=== PATIENT | male | born 1940 | race Caucasian/White ===

== ENCOUNTER 2020-06-01 16:44 | Inpatient (IN) | payer OTHER ==
[~2020-06-01] VITALS: Ht 152.4 cm; Wt 106.3 kg
[2020-06-01] MEDS ORDERED: AZITHROMYCIN 500MG/ 250ML 250 ML IV ONE (18:00)
[2020-06-01 18:52] LABS: Basophils # (auto) 0 10 ^3/uL (0-0.2); Basophils % (auto) 0.4 % (0.0-2.0); Eosinophils # (auto) 0.3 10 ^3/uL (0-0.8); Eosinophils % (auto) 3.7 % (0.0-7.0); Hematocrit 43.6 % (41.0-53.0); Hemoglobin 14.3 g/dL (13.5-17.5); Lymphocytes # (auto) 1.2 10 ^3/uL (0.4-5.4); Lymphocytes % (auto) 14.3 % (10.0-50.0); Mean Corpuscular Hemoglobin 28.8 pg (28.0-32.0); Mean Corpuscular Hgb Conc. 32.9 g/dL (32.0-36.0); Mean Corpuscular Volume 87.5 fL (80.0-100.0); Monocytes # (auto) 0.8 10 ^3/uL (0-1.3); Neutrophils # (auto) 6.3 10 ^3/uL (1.6-8.6); Neutrophils % (auto) 72.6 % (37.0-80.0); Nucleated Red Blood Cells % 0.1 %; Platelet Count (auto) 241 10^3/uL (140-450); Red Blood Cells 4.98 10^6/uL (4.5-5.90); White Blood Cell 8.7 10^3/uL (4.4-10.8)
[2020-06-01 19:06] LABS: Albumin 2.5 g/dL (3.4-5.0); Calcium 9.3 mg/dL (8.5-10.1); Potassium 4.7 mmol/L (3.5-5.1)
[2020-06-01 19:12] LABS: BUN/Creatinine Ratio 26.1; Bilirubin, Total 0.6 mg/dL (0.2-1.0); Total Protein 6.2 g/dL (6.4-8.2)
[2020-06-01] MEDS ORDERED: LORazepam 2MG/ML-1ML VIAL IV ONE ×2 (19:15→23:45)
[2020-06-01] MEDS ORDERED: ASPirin-EC 81 mg tab PO ONE (22:00)
[2020-06-01] MEDS ORDERED: ASCORBIC ACID 500 MG TAB PO ONE (22:00)
[2020-06-01] MEDS ORDERED: ZINC SULFATE 220mg CAP or TAB PO ONE (22:00)
[2020-06-02 00:50] LABS: INR 1.02 (0.9-1.15); Partial Thromboplastin Time 23.2 sec (23.0-31.2)
[2020-06-02] MEDS: SODIUM CHLORIDE 0.9% 1,000 ML IV SCH ×3 (03:15→23:12)
[2020-06-02] MEDS ORDERED: HEPARIN DRIP/D5W 100UNITS/ML 250 ML IV SCH ×2 (04:15→14:30)
[2020-06-02] MEDS ORDERED: HEPARIN SODIUM (PORCINE) 5000 UNITS/ML 1ML VIAL IV ONE (04:15)
[2020-06-02 04:59] LABS: BUN/Creatinine Ratio 24.7; Potassium 3.9 mmol/L (3.5-5.1)
[2020-06-02] MEDS ORDERED: VANCOMYCIN PER PHARMACY 0 MG IV SCH (07:30)
[2020-06-02] MEDS: hydrALAZINE HCL 20 MG/ML VL IV PRN (07:30)
[2020-06-02] MEDS: PIPERACILLIN-TAZOB 3.375GM 100 ML IV SCH ×4 (07:30→23:29)
[2020-06-02] MEDS ORDERED: VANCOMYCIN 1GM/250ML 250 ML IV ONE (09:15)
[2020-06-02 09:53] LABS: Hematocrit 43.7 % (41.0-53.0); Hemoglobin 14.5 g/dL (13.5-17.5); Mean Corpuscular Hgb Conc. 33.3 g/dL (32.0-36.0); Mean Corpuscular Volume 87.4 fL (80.0-100.0); Platelet Count (auto) 248 10^3/uL (140-450); Red Blood Cells 5.01 10^6/uL (4.5-5.90); Red Cell Distribution Width 15.1 % (11.8-14.3); White Blood Cell 10.7 10^3/uL (4.4-10.8)
[2020-06-02 09:55] LABS: Band Neutrophils % (manual) 0; Basophils % (manual) 0 (0.0-2.0); Blast Cells 0; Metamyelocytes % 0; Promyelocytes % 0; Reactive Lymphocytes 0
[2020-06-02] MEDS ORDERED: cefTRIAXone 1GM/50ML D5W 50 ML IV SCH (10:00)
[2020-06-02] MEDS: PANTOPRAZOLE 40 MG/10 ML VIAL INJ IV SCH (10:14)
[2020-06-02] MEDS: ATORVASTATIN 20 MG TAB PO SCH (10:15)
[2020-06-02] MEDS: CLOPIDOGREL BISULFATE 75 MG TAB PO SCH (10:15)
[2020-06-02] MEDS: CARVEDILOL 3.125 MG TAB PO SCH ×3 (10:15→19:48)
[2020-06-02] MEDS: ASPirin 81 mg TAB PO SCH (10:15)
[2020-06-02] MEDS: DOCUSATE SOD 100 MG CAP PO SCH ×2 (10:15→21:30)
[2020-06-02 10:17] LABS: Eosinophils % (manual) 6 (0-7); Lymphocytes % (manual) 15 (10.0-50.0); Monocytes % (manual) 2 (0-12); Myelocytes % 1
[2020-06-02 12:00] VITALS: BP 136/47
[2020-06-02 12:30] VITALS: BP 136/47
[2020-06-02 14:08] LABS: INR 1.07 (0.9-1.15); Partial Thromboplastin Time 52.8 sec (23.0-31.2)
[2020-06-02 14:12] LABS: BUN/Creatinine Ratio 25.5; Potassium 4.2 mmol/L (3.5-5.1)
[2020-06-02 14:13] LABS: Calcium 9.1 mg/dL (8.5-10.1)
[2020-06-02] MEDS: IPRATROPIUM BROM 0.5 MG/2.5ML INH SOL NEB SCH ×3 (14:49→22:37)
[2020-06-02] MEDS: ALBUTEROL SULF 2.5 MG/0.5ML(0.5%) NEB SOLN NEB SCH ×3 (14:49→22:37)
[2020-06-02 15:22] VITALS: BP 178/118
[2020-06-02 16:00] VITALS: BP 135/62
[2020-06-02] MEDS ORDERED: LORazepam 2MG/ML-1ML VIAL IV ONE (16:15)
[2020-06-02] MEDS ORDERED: IOHEXOL 350 MG/ML 100ML IJ ONE (16:29)
[2020-06-02] MEDS: AZITHROMYCIN 500MG/ 250ML 250 ML IV SCH (18:00)
[2020-06-02] MEDS: LORazepam 2MG/ML-1ML VIAL IV PRN (19:55)
[2020-06-02 20:00] VITALS: BP_SYST 110; BP_SYST 123; BP_DIAS 64; BP_DIAS 89
[2020-06-03] VITALS: BP 160/82
[2020-06-03] MEDS: hydrALAZINE HCL 20 MG/ML VL IV PRN ×2 (01:35→04:31)
[2020-06-03 03:11] LABS: Basophils # (auto) 0.1 10 ^3/uL (0-0.2); Basophils % (auto) 1.1 % (0.0-2.0); Eosinophils # (auto) 0.5 10 ^3/uL (0-0.8); Hematocrit 42.3 % (41.0-53.0); Hemoglobin 13.9 g/dL (13.5-17.5); Lymphocytes % (auto) 8.6 % (10.0-50.0); Mean Corpuscular Hemoglobin 28.9 pg (28.0-32.0); Mean Corpuscular Volume 87.8 fL (80.0-100.0); Monocytes % (auto) 8.5 % (0.0-12.0); Neutrophils # (auto) 9.5 10 ^3/uL (1.6-8.6); Neutrophils % (auto) 77.8 % (37.0-80.0); Platelet Count (auto) 243 10^3/uL (140-450); Red Blood Cells 4.82 10^6/uL (4.5-5.90); White Blood Cell 12.2 10^3/uL (4.4-10.8)
[2020-06-03 03:33] LABS: BUN/Creatinine Ratio 16.4; Calcium 9.2 mg/dL (8.5-10.1); Potassium 4.2 mmol/L (3.5-5.1)
[2020-06-03 04:00] VITALS: BP 172/82
[2020-06-03] MEDS: PIPERACILLIN-TAZOB 3.375GM 100 ML IV SCH ×2 (05:26→12:00)
[2020-06-03] MEDS: LORazepam 2MG/ML-1ML VIAL IV PRN (06:23)
[2020-06-03] MEDS: ALBUTEROL SULF 2.5 MG/0.5ML(0.5%) NEB SOLN NEB SCH ×2 (06:45→10:57)
[2020-06-03] MEDS: IPRATROPIUM BROM 0.5 MG/2.5ML INH SOL NEB SCH ×2 (06:45→10:57)
[2020-06-03] MEDS ORDERED: DONE10TA40 PO (08:37)
[2020-06-03] MEDS ORDERED: LISI-646 PO (08:37)
[2020-06-03] MEDS ORDERED: METO-158 PO (08:37)
[2020-06-03] MEDS ORDERED: ASPI325T4 PO (08:37)
[2020-06-03] MEDS ORDERED: GABA300C10 PO (08:37)
[2020-06-03] MEDS ORDERED: DILT120C20 PO (08:37)
[2020-06-03] MEDS ORDERED: ROSU20TA14 PO (08:37)
[2020-06-03] MEDS: ASPirin 81 mg TAB PO SCH (09:25)
[2020-06-03] MEDS: DOCUSATE SOD 100 MG CAP PO SCH (09:25)
[2020-06-03] MEDS: PANTOPRAZOLE 40 MG/10 ML VIAL INJ IV SCH (09:25)
[2020-06-03] MEDS: ATORVASTATIN 20 MG TAB PO SCH (09:26)
[2020-06-03] MEDS: CLOPIDOGREL BISULFATE 75 MG TAB PO SCH (09:26)
[2020-06-03] MEDS: SODIUM CHLORIDE 0.9% 1,000 ML IV SCH (09:26)
[2020-06-03] MEDS ORDERED: ALBUTEROL SULF HFA 90MCG INH 200DOSE IN SCH (12:00)
[2020-06-03] MEDS: AZITHROMYCIN 500MG/ 250ML 250 ML IV SCH (17:17)
[2020-06-03] MEDS ORDERED: PIPERACILLIN-TAZOB 2.25GM 50 ML IV SCH (18:00)
== END 2020-06-03 18:01 | DRG 189 ==
LOC: EDBD 16:44 → ER 16:44 → TELE 16:45 → EDBD 16:45 → DOU IN ICU 06-02 12:17
PROVIDERS: ADMIT Hospitalist; ATTEND Hospitalist
DX: J96.01 Acute respiratory failure with hypoxia (principal); J18.9 Pneumonia, unspecified organism; I24.8 Other forms of acute ischemic heart disease; N17.9 Acute kidney failure, unspecified; Z68.42 Body mass index [BMI] 45.0-49.9, adult; J44.0 Chronic obstructive pulmonary disease with (acute) lower respiratory infection; Z20.828 Contact with and (suspected) exposure to other viral communicable diseases; E66.9 Obesity, unspecified; E78.5 Hyperlipidemia, unspecified; F17.200 Nicotine dependence, unspecified, uncomplicated; G30.1 Alzheimer's disease with late onset; F02.80 Dementia in other diseases classified elsewhere, unspecified severity, without behavioral disturbance, psychotic disturbance, mood disturbance, and anxiety; I10 Essential (primary) hypertension; K44.9 Diaphragmatic hernia without obstruction or gangrene; Z86.73 Personal history of transient ischemic attack (TIA), and cerebral infarction without residual deficits; J44.9 Chronic obstructive pulmonary disease, unspecified; Z79.899 Other long term (current) drug therapy; Z78.1 Physical restraint status
CPT/HCPCS: 36415; 36600; 70450; 71045; 71275; 80048; 80053; 80202; 82805; 83605; 83735; 83880; 84484; 85007; 85025; 85027; 85379; 85610; 85730; 87040; 87081; 87426; 87804; 93005; 93306; 94640; C9113; G0378; J2543